=== PATIENT | female | born 1980 | race Caucasian/White ===

== ENCOUNTER 2024-04-07 12:17 | Outpatient (CLI) | payer SELFPAY | END 2024-04-07 23:59 | disposition home or self-care (01) | DX: M85.80 Other specified disorders of bone density and structure, unspecified site (principal) | CPT/HCPCS: 76499 ==

== ENCOUNTER → 2024-10-18 | Outpatient (CLI) | payer SELFPAY | END | disposition home or self-care (01) | DX: Z13.9 Encounter for screening, unspecified (principal) | CPT/HCPCS: 76499 ==